=== PATIENT | female | born 2000 | race Caucasian/White ===

== ENCOUNTER 2024-08-29 18:56 | Outpatient (REF) | payer BC, SELFPAY ==
[2024-08-29 20:57] LABS: HCT 42.2 % (36.0-46.0); HGB 13.9 g/dL (11.2-15.7); MCH 28.9 pg (27.0-33.0); MCHC 32.9 % (32.0-36.0); MCV 88 fL (80-95); MPV 10.3 fL (8.0-11.0); Platelet Count 257 10^3/uL (130-400); RBC 4.81 10^6/uL (3.93-5.22); RDW 11.8 % (11.7-14.6); RDW-SD 37.9 fL; WBC 7.43 10^3/uL (4.4-10.8)
[2024-08-29 21:17] LABS: TSH (W/Ref FT4) 3.28 uIU/mL (0.36-3.74)
[2024-08-29 21:21] LABS: Hemoglobin A1C 5.1 % (<5.7)
== END 2024-08-29 18:57 | disposition home or self-care (01) ==
LOC: NCHCN 18:56
PROVIDERS: Visit Provider Family Medicine
DX: R00.2 Palpitations (principal); R53.83 Other fatigue; Z13.1 Encounter for screening for diabetes mellitus
CPT/HCPCS: 85027; 83036; 84443

== ENCOUNTER 2024-11-08 10:33 | Outpatient (REF) | payer BC, SELFPAY ==
--- NOTE | 2024-11-08 10:00 | PAPFT_PTH ---
PATIENT: Catalina Acosta LOC: [facility] U#:[id number] AGE/SX: 24/F ROOM: RE11/08/[address]: Mario Hoffman : 2000 BED: DIS: 11/08/2024 SPEC #: [id number] RECD: 11/08/24 17:43 STATUS: NED REQ #: [id number] HUMBLE: 11/08/24 10:[address]: Mario Hoffman DEPT: [facility] Cytology RECD BY: Esperanza Aceves ENTERED: 11/08/24 17:43 SP TYPE: PAPFT OTHR DR: Unknown,Unknown Tissues: 1 - CX/ENDOCX FOR PAP SMEARS Procedures: PAP THIN PREP/[facility] Screening Comments: [id number] (CHLAMYDIA/GC)
[2024-11-09 12:00] LABS: Chlamydia Result Negative (Negative); GC Result Negative (Negative)
== END 2024-11-08 10:34 | disposition home or self-care (01) ==
LOC: NCHCN 10:33
PROVIDERS: Visit Provider Family Medicine
DX: Z12.4 Encounter for screening for malignant neoplasm of cervix (principal)
CPT/HCPCS: 87491; 87591; 88142

== ENCOUNTER 2024-11-14 08:30 | Outpatient (REF) | payer BC, SELFPAY ==
[2024-11-14 15:13] LABS: ALT 28 U/L (14-59); AST 25 U/L (15-37); Alkaline Phosphatase 56 U/L (46-116); Anion Gap 5.6 mmol/L (3-11); BUN 11 mg/dL (7-18); Bilirubin, Total 0.5 mg/dL (0.2-1.0); CO2 30.4 mmol/L (21.0-32.0); CREATININE 0.7 mg/dL (0.55-1.02); Calcium 9.1 mg/dL (8.5-10.1); Chloride 104 mmol/L (98-107); Estimated GFR 125.33 (mL/min/1.73m2); Glucose 83 mg/dL (74-106); Potassium 4.3 mmol/L (3.5-5.1); Sodium 140 mmol/L (136-145); TSH (W/Ref FT4) 4.63 uIU/mL (0.36-3.74); Total Protein 7.7 g/dL (6.4-8.2)
[2024-11-14 16:24] LABS: FREE T4 0.94 ng/dL (0.76-1.46)
[2024-11-15 18:42] LABS: Prolactin 19.2 ng/mL (See Note)
[2024-11-22 15:38] LABS: Testosterone, Total 63 ng/dL (8-60)
== END 2024-11-14 08:31 | disposition home or self-care (01) ==
LOC: NCHCN 08:30
PROVIDERS: Visit Provider Family Medicine
DX: N92.6 Irregular menstruation, unspecified (principal)
CPT/HCPCS: 80053; 84403; 83001; 84146; 84439; 84443

== ENCOUNTER 2025-03-04 14:58 | Outpatient (REF) | payer BC, SELFPAY ==
[2025-03-04 15:04] LABS: Hemoglobin A1C 4.9 % (<5.7)
[2025-03-04 15:14] LABS: Calculated LDL 99 mg/dL (<100); Cholesterol 176 mg/dL (<200); HDL Cholesterol 65 mg/dL (>or=50); Triglyceride 62 mg/dL (<150)
[2025-03-04 22:55] LABS: LH 5.8 mIU/mL (See Note)
[2025-03-05 18:32] LABS: TSH 3.18 uIU/mL (0.36-3.74)
== END 2025-03-04 14:59 | disposition home or self-care (01) ==
LOC: NCHCN 14:58
PROVIDERS: PCP Family Medicine; Visit Provider Family Medicine
DX: E28.2 Polycystic ovarian syndrome (principal); E03.8 Other specified hypothyroidism; Z13.220 Encounter for screening for lipoid disorders
CPT/HCPCS: 80061; 82627; 83498; 83002; 83036; 84439; 84443